=== PATIENT | male | born 1960 | race Caucasian/White ===

== ENCOUNTER 2021-04-15 14:54 | Emergency (ER) | payer OTHER ==
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
--- NOTE | 2021-04-15 16:23 | CT ---
CT cervical spine Technique: Multiple axial sections were above the C1 inferiorly to the bottom of T1. Reconstructed coronal and sagittal images were obtained. Comparison: No prior cervical spine imaging is available. Findings: Mild degenerative change is seen within the dens and C1 arch. There is moderate disc space narrowing noted at C3-4. Moderate to severe disc space narrowing is noted at C5-6. Anterior osteophytes are seen at C5-6. Vertebral body heights are maintained. Scattered degenerative apophyseal change is seen throughout the cervical spine which is worse on the left side. Vacuum disc phenomena is also noted within the C5-6 disc. Mild left-sided neural foraminal stenosis is noted at C3-4. Other neural foramina are patent. No central canal stenosis is seen. No fracture is identified. No abnormal subluxation is seen. Impression: 1. Degenerative change as described above. 2. No acute fracture or abnormal subluxation is seen. Diagnostic code #2
--- NOTE | 2021-04-15 16:37 | CR ---
Chest: Frontal view of the chest was obtained. Comparison: No prior chest imaging is available. Heart size and mediastinum are within normal limits. Lungs are clear with no acute parenchymal change. No acute bony abnormality is appreciated. Impression: 1. Nothing acute is seen on frontal chest x-ray. Diagnostic code #1
--- NOTE | 2021-04-15 16:37 | CR ---
Lumbar spine: AP and lateral views of the lumbar spine were obtained as well as coned-down lateral view centered to the lumbosacral junction. Comparison: No prior lumbar spine imaging is available. Severe disc space narrowing at L5-S1 is seen with vacuum disc phenomena. Posterior disc space narrowing is seen at L3-4 and L4-5. Other disc spaces are fairly well preserved. Scattered anterior endplate osteophytes are seen. Slight scoliosis is noted. Pedicles are intact. Visualized transverse and spinous processes are intact. No fracture or subluxation is seen. Impression: 1. Degenerative change as described above with mild scoliosis. 2. Nothing acute is appreciated on 3-view lumbar spine study. Diagnostic code #2
[2021-04-15] MEDS ORDERED: Acetaminophen/HYDROcodone 325-5 MG Tab PO ONE (17:32)
== END 2021-04-15 18:05 | disposition home or self-care (01) ==
LOC: JD.ED 14:54
DX: S13.4XXA Sprain of ligaments of cervical spine, initial encounter (principal); S16.1XXA Strain of muscle, fascia and tendon at neck level, initial encounter; V63.5XXA Driver of heavy transport vehicle injured in collision with car, pick-up truck or van in traffic accident, initial encounter; Y92.410 Unspecified street and highway as the place of occurrence of the external cause
CPT/HCPCS: 71045; 72100; 72125; 99284; A9270